=== PATIENT | female | born 2000 | race Caucasian/White ===

== ENCOUNTER 2023-04-16 23:09 | Emergency (ER) | payer OTHER, SELFPAY ==
[2023-04-16 23:11] VITALS: BP 144/89; PULSE 106; RESP 16; TEMP 36.3; O2SAT 100
--- NOTE | 2023-04-16 23:20 | EDS_ITS ---
HPI HPI - GI History of Present Illness Chief Complaint: Abd Pain Narrative Narrative: 23-year-old female presents with right lower quadrant abdominal pain/right pelvic pain that began approximately an hour ago. Was sudden onset. She denies any exacerbating or alleviating factors, but does state that it is sharp and stabbing in nature. No recent fevers or chills, no nausea or vomiting. Note, she did get an IUD placed in December and has had a regular menses over the last few months. She has not had any dysuria or hematuria, no problems with bowel movements. PFSH PFSH Home Medications ibuprofen 600 mg tablet 600 mg PO Q8H PRN PRN pain #20 TABLETS 04/17/23 [Rx Last Taken Unknown] Allergy/AdvReac Type Severity Reaction Status Date / Time No Known Allergies Allergy Verified 04/16/23 23:11 Social History Smoking Status: Current every day smoker tobacco type: e-cigarettes ROS ROS ED ROS Narrative Constitutional: No fever, no chills. HEENT: No sore throat. No neck pain. No loss of vision. No rhinorrhea. Cardiovascular: No chest pain. No palpitations. No pedal edema. Respiratory: No cough, no shortness of breath. Abdominal: Lower quadrant abdominal pain/pelvic pain. No nausea. No vomiting. Genitourinary: No dysuria. No hematuria. Vaginal bleeding. Musculoskeletal: No myalgias. No arthralgias. Neurologic: No headaches. No dizziness. No lightheadedness. Skin: No rash. No change in color. Psychiatric: No depression. No anxiety. EXAM Physical Exam Narrative Exam Narrative: Afebrile. Vital signs noted. HEENT: Normocephalic. Atraumatic. PERRL, EOMI. Neck soft and supple. No point tenderness or step off. Cardiovascular: Regular rate and rhythm. No murmurs, rubs, or gallops appreciated. Respiratory: No tachypnea. Lungs clear to auscultation bilaterally. Gastrointestinal: Abdomen soft, tenderness to palpation right lower quadrant to right pelvis with normoactive bowel sounds. No rebound or guarding. Neurological: Awake. Alert. Nonfocal, nonlateralizing. Skin: No rash. Normal color. No pallor. Musculoskeletal: No pedal edema. Full range of motion extremities. Const Vital Signs: 04/16/23 23:11 Temperature 97.3 F L Temperature Source Temporal Pulse Rate 106 H Respiratory Rate 16 Blood Pressure 144/89 H Blood Pressure Mean 107 Pulse Ox 100 Oxygen Delivery Method Room Air MDM MDM MDM Narrative Medical decision making narrative: In the differential diagnosis is acute appendicitis versus ovarian cyst rupture versus ovarian torsion versus ureterolithiasis/pyelonephritis. She does not really have the history and physical to support appendicitis classically. With her IUD placement, she may also have ectopic . I have low suspicion for ovarian torsion as she does not have history of ovarian cyst. I will start with basic laboratory work including CBC, CMP, urinalysis, and serum test. I do feel that imaging is indicated in the form of CT with IV contrast. Although this may miss ureterolithiasis it can check for hydronephrosis. I am more concerned about any free fluid in the abdomen/pelvis as well. Do feel the contrast is indicated to help rule out an acute appendicitis. She will be given morphine and ondansetron as well as a bolus of normal saline 1 L intravenously for analgesia. I reviewed her laboratory work and she has normal white count 8.1, hemoglobin 11.9, platelet count normal at 243. Her electrolyte panel shows a chloride of 109, normal sodium of 140, potassium 3.6. AST is slightly low at 10 with a normal ALT of 14. BUN and creatinine are normal at 11 and 0.77 respectively. Serum is negative. Urinalysis reviewed and is negative for infection. I do not feel antibiotics are indicated. I reviewed the CT report which mentions a corpus luteum cyst and a small amount of free fluid in the pelvis from ruptured ovarian cyst. It is otherwise negative for acute pathology. Appendix was visualized and appeared normal. At this point in time, upon repeat examination she is resting comfortably and states her pain feels more like a pressure. I feel she can be discharged to follow-up with an [facility] [employer]. She states that her IUD had been inserted by [facility]. I wrote her prescription for ibuprofen 600 mg to take up to 3 times a day for pain. I do not feel she requires an emergent ultrasound, nor do I feel that she requires admission or narcotic pain medication. Disposition is discharged home in stable condition. History & Record Review Discussion w/independent historian: Patient and Significant other Additional record(s) reviewed:: No prior records Lab Data Labs: Laboratory Results - last 24 hr 04/16/23 04/16/23 23:30 23:37 WBC 8.1 RBC 4.24 Hgb 11.9 L Hct 37.2 MCV 87.7 MCH 28.1 MCHC 32.0 RDW Std Deviation 40.1 RDW Coeff of Julianne 12.6 Plt Count 243 MPV 11.2 Immature Gran % (Auto) 0.500 Neut % (Auto) 71.6 H Lymph % (Auto) 19.5 Logan % (Auto) 7.2 Eos % (Auto) 1.0 Baso % (Auto) 0.2 Absolute Neuts (auto) 5.8 Absolute Lymphs (auto) 1.58 Nucleated RBC % 0 Sodium 140 Potassium 3.6 Chloride 109 H Carbon Dioxide 29.0 Anion Gap 2 L BUN 11 Creatinine 0.77 Est GFR (MDRD) Af Amer 120 Est GFR (MDRD) Non-Af 100 BUN/Creatinine Ratio 14.3 Glucose 129 H Calcium 8.9 Total Bilirubin 0.20 AST 10 L ALT 14 Alkaline Phosphatase 71 Total Protein 7.5 Albumin 3.9 Globulin 3.6 Albumin/Globulin Ratio 1.1 Serum , Qual NEGATIVE Urine Color Yellow Urine Clarity Clear Urine pH 7.0 Ur Specific [place] 1.010 Urine Protein Negative Urine Glucose (UA) Normal Urine Ketones Negative Urine Occult Blood Negative Urine Nitrite Negative Urine Bilirubin Negative Urine Urobilinogen Normal Ur Leukocyte Esterase 25 H Urine RBC 0 SEEN Urine WBC 0-5 SEEN Ur Squamous Epith Cells 0 SEEN Urine Bacteria 0 SEEN Urine Mucus 0 SEEN Radiography Diagnostic Testing: Clinical Impression(s) from Imaging Studies Abdomen/Pelvis CT 04/17/23 00:00 IMPRESSION: Recently ruptured right ovarian corpus luteum cyst with small amount of free pelvic fluid. Electronically Signed: Herminio Miller MD at 0:54 EST , Discharge Plan Triage Chief Complaint: Abd Pain ED Provider: Manuel Hawk Dx/Rx/DC Orders Clinical Impression: Rupture of cyst of right ovary, Abdominal pain Instructions: ED Ovarian Cyst, ED Pelvic Pain, Unknown Cause Prescriptions: New ibuprofen 600 mg tablet 600 mg PO Q8H PRN PRN (Reason: pain) Qty: 20 0RF Primary Care Provider: Care Physician,No Primary Referrals: Sofy Smith MD [Med Staff - Active Staff] - As soon as possible Care Physician,No Primary [Primary Care Provider] - Activity Restrictions/Additional Instructions: Return with fever, increased pain, new or worsening symptoms. Disposition Disposition: Home, Self Care
[2023-04-16] MEDS: Morphine 4 MG/ML Syringe IV (23:34)
[2023-04-16] MEDS: Ondansetron 4 MG/2 ML Vial IV (23:34)
[2023-04-16] MEDS: 0.9% Normal Saline (1000mL) 1,000 ML 1000 ML IV (23:34)
[2023-04-16 23:44] LABS: Bacteria 0 SEEN /hpf (None Seen); Mucous, Urine 0 SEEN /hpf (<or=2+); Red Blood Cells-Urine 0 SEEN /hpf (0-5); Squamous Epithelial Cells - UA 0 SEEN /hpf (5-10)
[2023-04-16 23:46] LABS: Absolute Lymphocyte Count 1.58 X10^3/uL (0.83-4.51); Absolute Neutrophil Count 5.8 X10^3/uL (2.0-7.7); Basophil# 0.02 X10^3/uL; Basophil% 0.2 % (0-1); Eosinophil# 0.08 X10^3/uL; Hematocrit 37.2 % (37-47); Hemoglobin 11.9 g/dL (12.0-15.0); Lymphocyte # 1.58 X10^3/ul (0.83-4.51); Lymphocyte % 19.5 % (19-41); Mean Corpuscular Hgb 28.1 pg (27.0-32.0); Mean Corpuscular Volume 87.7 fL (81-99); Mean Platelet Vol. 11.2 fl (6.2-12.0); Monocyte# 0.58 X10^3/uL; Monocyte% 7.2 % (0-10); NRBC Flagged by Analyzer 0 % (0-5); Neutrophil # 5.79 X10^3/uL (2.7-7.7); Neutrophil % 71.6 % (47-70); Platelet Count 243 K/mm3 (150-450); RBC Distribution Width CV 12.6 % (11.6-14.6); RBC Distribution Width SD 40.1 fl (35.1-43.9); Red Blood Count 4.24 M/mm3 (4.2-5.4); White Blood Count 8.1 K/mm3 (4.4-11.0)
[2023-04-16 23:53] LABS: Color, Urine Yellow (Yellow); Glucose, Dipstick Normal (Normal); Ketone-Dipstick Negative (Negative); Leukocyte Esterase-Dipstick 25 /ul (Negative); Nitrite-Dipstick Negative (Negative); Occult Blood-Urine Negative /ul (Negative); Protein-Dipstick Negative (Negative); Urine Bilirubin Dipstick Negative (Negative); Urine Clarity Clear (Clear); Urine Urobilinogen Normal (Normal)
--- NOTE | 2023-04-17 | CT_ITS ---
INDICATION: RLQ pain EXAMINATION: CT Abdomen And Pelvis W/ Contrast Injection TECHNIQUE: Helically acquired images were obtained of the abdomen and pelvis following IV contrast. 2-D reconstructions reviewed. A radiation dose optimization technique was used for this scan. IV Contrast dosage and agent: 100 cc [id number] Oral contrast: None. COMPARISON: None. FINDINGS: LOWER CHEST: No acute findings within the imaged lung bases. Heart size within normal limits. LIVER: Homogeneous. No concerning lesion. GALLBLADDER AND BILIARY TREE: No calcified gallstones identified. No gallbladder wall edema demonstrated. No significant biliary ductal dilation. PANCREAS: No discrete mass or peripancreatic edema. SPLEEN: Normal size without concerning lesion. ADRENAL GLANDS: Unremarkable. KIDNEYS AND URETERS: Normal renal size and position. No perinephric edema or hydronephrosis. No concerning lesion. PERITONEUM: Small amount of free pelvic fluid. No peritoneal free air detected. RETROPERITONEUM: No retroperitoneal mass or pathologic fluid collection. BOWEL: Normal appendix medial to cecum within right lower quadrant. No bowel obstruction or significant bowel thickening. No focal inflammatory change. LYMPH NODES: No enlarged mesenteric or retroperitoneal lymph nodes. VESSELS: No acute findings. No abdominal aortic aneurysm. URINARY BLADDER: Unremarkable as visualized. REPRODUCTIVE ORGANS: IUD in place. Rim-enhancing, partially involuted 2 cm right adnexal cyst. ABDOMINAL WALL: No acute findings or significant hernia defect. BONES: Intact with no suspicious osseous lesion. CT/Abdomen/Pelvis W IV Cont ONLY IMPRESSION: Recently ruptured right ovarian corpus luteum cyst with small amount of free pelvic fluid. Electronically Signed: Herminio Miller MD at 0:54 EST ,
[2023-04-17 00:03] LABS: Internal QC Validated? YES +Cl - CLEAR BKGD; Pregnancy, Serum, hCG Quali. NEGATIVE Negative
[2023-04-17 00:07] LABS: ALB/GLOB Ratio 1.1 RATIO (0.9-2.4); AST(SGOT) 10 U/L (15-37); Alanine Aminotransfer ALT/SGPT 14 U/L (13-56); Albumin, Serum 3.9 g/dL (3.2-5.0); Alkaline Phosphatase 71 U/L (45-117); Anion Gap 2 (5-15); BUN 11 mg/dL (7-18); BUN/Creat Ratio 14.3 RATIO (10-20); Calcium,Total 8.9 mg/dL (8.5-10.1); Chloride 109 mmol/L (98-107); Creatinine, Serum 0.77 mg/dL (0.55-1.02); EST Glomerular Filtration Rate 100 mL/min (>60); Est Glom Filt Rate - Afr Amer 120 mL/min (>60); Globulin 3.6 g/dL (2.2-4.2); Glucose 129 mg/dL (74-106); Potassium 3.6 mmol/L (3.5-5.1); Protein, Total 7.5 g/dL (6.4-8.2); Sodium Level 140 mmol/L (136-145)
[2023-04-17 00:19] LABS: White Blood Cells 0-5 SEEN /hpf (0-5)
[2023-04-17 01:18] VITALS: BP 144/89; PULSE 106; RESP 15; O2SAT 100
== END 2023-04-17 01:20 | disposition home or self-care (01) ==
PROVIDERS: Emergency Provider Emergency Medicine; Visit Provider Emergency Medicine
DX: N83.201 Unspecified ovarian cyst, right side (principal); F17.290 Nicotine dependence, other tobacco product, uncomplicated; R10.31 Right lower quadrant pain
CPT/HCPCS: 74177; 80053; 81001; 84703; 85025; 96361; 96374; 96375; 99283; J7030; Q9967; A4216; J2405